=== PATIENT | female | born 1965 | race Caucasian/White ===

== ENCOUNTER 2017-08-07 03:14 | Emergency (ER) | payer OTHER ==
[~2017-08-07] VITALS: Ht 165.1 cm; Wt 81.7 kg
[~2017-08-07 03:14] MED LIST: ENBREL50 MG/1 ML SUB-Q; IBUPROFEN600 MG PO; IBUPROFEN800 MG PO; LEVOXYL75 MCG PO; OMEPRAZOLE20 MG PO; PREDNISONE20 MG PO; RAYOS2 MG PO
[2017-08-07] MEDS ORDERED: GABAPENTIN100 MG PO (03:47)
[2017-08-07] MEDS ORDERED: OMEPRAZOLE20 MG PO (03:48)
[2017-08-07] MEDS ORDERED: ARAVA10 MG PO (03:48)
== END 2017-08-07 04:20 | disposition home or self-care (01) ==
LOC: ED 03:14
DX: J20.9 Acute bronchitis, unspecified (principal); M06.9 Rheumatoid arthritis, unspecified; F17.200 Nicotine dependence, unspecified, uncomplicated; Z79.899 Other long term (current) drug therapy
CPT/HCPCS: 71046; 99283

== ENCOUNTER 2017-10-28 10:10 | Emergency (ER) | payer MEDICARE, OTHER ==
[~2017-10-28] VITALS: Ht 165.1 cm; Wt 81.7 kg
[~2017-10-28 10:10] MED LIST changes: +ARAVA10 MG PO; +GABAPENTIN100 MG PO
[2017-10-28] MEDS ORDERED: NEURONTIN300 MG PO (11:38)
== END 2017-10-28 12:07 | disposition home or self-care (01) ==
LOC: ED 10:10
DX: M79.605 Pain in left leg (principal); M06.9 Rheumatoid arthritis, unspecified; F17.200 Nicotine dependence, unspecified, uncomplicated; Z79.899 Other long term (current) drug therapy
CPT/HCPCS: 93971; 99284

== ENCOUNTER 2020-07-16 17:24 | Emergency (ER) | payer MEDICARE, OTHER ==
[~2020-07-16] VITALS: Ht 165.1 cm; Wt 81.6 kg
[~2020-07-16 17:24] MED LIST changes: +NEURONTIN300 MG PO
== END 2020-07-16 21:20 | disposition left against medical advice (07) ==
LOC: ED 17:24
DX: Z53.21 Procedure and treatment not carried out due to patient leaving prior to being seen by health care provider (principal)

== ENCOUNTER 2022-10-03 14:41 | Emergency (ER) | payer MEDICARE, OTHER ==
[~2022-10-03] VITALS: Ht 165.1 cm; Wt 66.2 kg
[2022-10-03] MEDS ORDERED: VENTOLIN HFA18 GM INH (16:00)
[2022-10-03] MEDS ORDERED: PREDNISONE20 MG PO (16:00)
== END 2022-10-03 16:23 | disposition home or self-care (01) ==
LOC: ED 14:41
DX: J44.1 Chronic obstructive pulmonary disease with (acute) exacerbation (principal); J44.0 Chronic obstructive pulmonary disease with (acute) lower respiratory infection; J20.9 Acute bronchitis, unspecified; F17.200 Nicotine dependence, unspecified, uncomplicated; Z79.899 Other long term (current) drug therapy; Z20.822 Contact with and (suspected) exposure to COVID-19
CPT/HCPCS: 71045; 87502; 94640; 94664; 99285-25; C9803; J7512; U0003

== ENCOUNTER 2025-05-23 07:55 | Emergency (ER) | payer OTHER ==
[~2025-05-23] VITALS: Ht 165.1 cm; Wt 69.8 kg
--- NOTE | ~2025-05-23 | EKG ---
[facility] [address] [place], [place] [address] Draft EK completed, results pending confirmation PATIENT NAME: DIVYA BARR Electrocardiogram DATE OF : 65 PHYSICIAN: PRELIMINARY REPORT #: [id number] REPORT IS CONFIDENTIAL AND NOT TO BE RELEASED WITHOUT AUTHORIZATION
--- OUTSIDE RECORDS SUMMARY | ~2025-05-23 | XMS | Continuity of Care Document ---
Demographics + + + | Address | [address] | | | [place] [address] | + + + | Preferred Language | Unknown | + + + | Marital Status | Never | + + + | Scientology Affiliation | Unknown | + + + | Race | White | + + + | Ethnic Group | Unknown | + + + Author + + + | Author | [facility] | + + + | Organization | [facility] | + + + | Address | [address] | | | [place] [address] | + + + | Phone | | + + + Care Team Providers + + + + | Care [employer] And Skin Classer Name | Role | Phone | + + + + Unavailable | Unavailable | + + + + Allergies No information. Encounters No information. Functional Status No information. Immunizations No information. Medications No information. Problems + + + + | date | description | facility | + + + + | 2025-03-25 07:25:12 | Rheumatoid arthritis, | [facility] | | | unspecified (HCC) | [facility] | + + + + | 2025-04-07 07:24:22 | Rheumatoid arthritis, | [facility] | | | unspecified (HCC) | [facility] | + + + + Procedures No information. Results/Labs No information. Social History +--------+ + + | date | description | facility | +--------+ + + Vital Signs No information."
[~2025-05-23 07:55] MED LIST changes: +METHYLPREDNISOLO4 M1 PO; +VENTOLIN HFA18 GM INH
[2025-05-23] MEDS ORDERED: predniSONE 20 MG TAB PO ONE (08:15)
[2025-05-23] MEDS ORDERED: ALBUTEROL/IPRATROPIUM 3 ML NEB INH PRN (08:15)
[2025-05-23] MEDS ORDERED: VENTOLIN HFA18 GM INH (08:16)
[2025-05-23] MEDS ORDERED: TRAZODONE HCL100 MG PO (08:16)
[2025-05-23 09:04] LABS: INFLUENZA B NAA NEGATIVE (NEGATIVE); RESPIRATORY SYNCYTIAL VIR NAA NEGATIVE (NEGATIVE)
[2025-05-23] MEDS ORDERED: ALBUTEROL SULFATE 0.083% 3 ML VIAL INH ONE (09:30)
[2025-05-23] MEDS ORDERED: IPRAT-ALBUT 0.5-3 ML INH (10:25)
[2025-05-23 10:50] VITALS: BP 109/74
== END 2025-05-23 10:50 | disposition home or self-care (01) ==
LOC: ED 07:55
PROVIDERS: Emergency Medicine
DX: J44.1 Chronic obstructive pulmonary disease with (acute) exacerbation (principal); F17.200 Nicotine dependence, unspecified, uncomplicated; Z79.899 Other long term (current) drug therapy
CPT/HCPCS: 71045; 80053; 83735; 84484; 85025; 87502; 93005; 93010; 94640; 94799; 99285-25; J7512; U0002